=== PATIENT | female | born 1990 | race Asian ===

== ENCOUNTER 2016-07-11 05:28 | Outpatient (CLI) | payer OTHER ==
[2016-07-11] MEDS ORDERED: PROP10TA57 PO (05:57)
[2016-07-11] MEDS ORDERED: MELOXICAM7.5 MG PO (05:58)
== END 2016-07-11 05:32 | disposition short-term general hospital (02) ==
LOC: AMB 05:28
DX: M79.662 Pain in left lower leg (principal); S60.426A Blister (nonthermal) of right little finger, initial encounter; R51 Headache; F41.8 Other specified anxiety disorders; M54.2 Cervicalgia; M79.644 Pain in right finger(s); V49.49XA Driver injured in collision with other motor vehicles in traffic accident, initial encounter; Y92.488 Other paved roadways as the place of occurrence of the external cause
CPT/HCPCS: A0425; A0429

== ENCOUNTER 2016-08-07 18:17 | Emergency (ER) | payer OTHER ==
[~2016-08-07] VITALS: Ht 165.1 cm; Wt 99.8 kg
[~2016-08-07 18:17] MED LIST: MELOXICAM7.5 MG PO; PROP10TA57 PO
[2016-08-07 19:35] LABS: POTASSIUM 2.6 mmol/L (3.6-5.2); SODIUM 134 mmol/L (136-145)
[2016-08-07 19:38] LABS: PLATELET COUNT 254 K/uL (152-353)
[2016-08-07 21:00] VITALS: BP 122/66; TEMP 98.6
== END 2016-08-07 21:01 | disposition home or self-care (01) ==
LOC: ED 18:17
DX: E87.6 Hypokalemia (principal); E83.42 Hypomagnesemia
CPT/HCPCS: 80053; 81000; 83735; 85027; 87804; 99284

== ENCOUNTER 2017-06-27 23:41 | Emergency (ER) | payer OTHER ==
[~2017-06-27] VITALS: Ht 165.1 cm; Wt 103.4 kg
[2017-06-28 00:32] LABS: PLATELET COUNT 172 K/uL (152-353)
[2017-06-28 00:35] LABS: POTASSIUM 3.9 mmol/L (3.6-5.2); SODIUM 129 mmol/L (136-145)
[2017-06-28 00:46] LABS: PARTIAL THROMBOPLASTIN TIME 26.8 SECONDS (24.5-33.6)
[2017-06-28 01:51] VITALS: BP 115/88; TEMP 99.3
== END 2017-06-28 01:53 | disposition home or self-care (01) ==
LOC: ED 23:41
PROVIDERS: Specialist
DX: Z33.1 Pregnant state, incidental (principal); R07.89 Other chest pain; R06.02 Shortness of breath; R00.0 Tachycardia, unspecified
CPT/HCPCS: 36415; 80053; 82550; 83880; 84484; 85027; 85379; 85610; 85730; 93005; 96374; 96375; 99284; J1100; J1200; J2060; J2780

== ENCOUNTER 2018-07-10 15:18 | Outpatient (CLI) | payer OTHER ==
[2018-07-10 16:07] LABS: PLATELET COUNT 441 K/uL (152-353)
[2018-07-10 16:22] LABS: POTASSIUM 4.1 mmol/L (3.6-5.2)
== END 2018-07-10 23:09 | disposition home or self-care (01) ==
LOC: RAD 15:18
DX: M05.79 Rheumatoid arthritis with rheumatoid factor of multiple sites without organ or systems involvement (principal); M32.8 Other forms of systemic lupus erythematosus; M35.1 Other overlap syndromes; Z79.899 Other long term (current) drug therapy
CPT/HCPCS: 36415; 80053; 81000; 85027; 85651; 86160; 86225; 87086; 87088

== ENCOUNTER 2020-03-14 14:55 | Outpatient (CLI) | payer OTHER | END 2020-03-15 01:09 | disposition home or self-care (01) | LOC: RAD 14:55 | DX: M25.531 Pain in right wrist (principal) ==

== ENCOUNTER 2021-03-29 17:09 | Emergency (ER) | payer OTHER ==
[~2021-03-29] VITALS: Ht 165.1 cm; Wt 116.6 kg
[2021-03-29 17:16] VITALS: TEMP 101.3
[2021-03-29 18:41] VITALS: BP 141/98
== END 2021-03-29 18:41 | disposition home or self-care (01) ==
LOC: ED 17:09
DX: M35.1 Other overlap syndromes (principal); G43.909 Migraine, unspecified, not intractable, without status migrainosus
CPT/HCPCS: 96372; 99283; J1885

== ENCOUNTER 2022-05-20 12:04 | Emergency (ER) | payer OTHER ==
[~2022-05-20] VITALS: Ht 165.1 cm; Wt 116.6 kg
[2022-05-20 12:10] VITALS: BP 152/95; TEMP 98.4
== END 2022-05-20 13:09 | disposition home or self-care (01) ==
LOC: ED 12:04
DX: M35.1 Other overlap syndromes (principal); J30.89 Other allergic rhinitis; H10.89 Other conjunctivitis
CPT/HCPCS: 99281

== ENCOUNTER 2022-06-17 12:56 | Emergency (ER) | payer OTHER ==
[~2022-06-17] VITALS: Ht 165.1 cm; Wt 120.2 kg
[2022-06-17 13:03] VITALS: BP 138/84; TEMP 98.8
[2022-06-17 14:06] LABS: PLATELET COUNT 195 K/uL (152-353)
== END 2022-06-17 17:08 | disposition home or self-care (01) ==
LOC: ED 12:56
PROVIDERS: Family Medicine
DX: J32.8 Other chronic sinusitis (principal)
CPT/HCPCS: 36415; 85027; 96372; 99283; J0696; J1885

== ENCOUNTER 2022-06-26 09:45 | Outpatient (CLI) | payer OTHER | END 2022-06-26 19:15 | disposition home or self-care (01) | LOC: RAD 09:45 | PROVIDERS: ATTEND Nurse Practitioner Family | DX: E55.9 Vitamin D deficiency, unspecified (principal); E56.8 Deficiency of other vitamins; M05.79 Rheumatoid arthritis with rheumatoid factor of multiple sites without organ or systems involvement; M06.4 Inflammatory polyarthropathy; M32.8 Other forms of systemic lupus erythematosus ==

== ENCOUNTER 2022-09-14 06:35 | Emergency (ER) | payer OTHER ==
[~2022-09-14] VITALS: Ht 162.6 cm; Wt 113.4 kg
[2022-09-14 06:40] VITALS: TEMP 98.1
[2022-09-14 07:24] LABS: PLATELET COUNT 203 K/uL (152-353)
[2022-09-14 07:32] LABS: POTASSIUM 3.4 mmol/L (3.6-5.2)
[2022-09-14 08:50] VITALS: BP 117/81
== END 2022-09-14 08:50 | disposition home or self-care (01) ==
LOC: ED 06:35
PROVIDERS: Emergency Medicine
DX: R07.89 Other chest pain (principal); R79.89 Other specified abnormal findings of blood chemistry; M32.8 Other forms of systemic lupus erythematosus
CPT/HCPCS: 36415; 80053; 81025; 84484; 85027; 85379; 93005; 96372; 99284; J1885